=== PATIENT | male | born 1965 | race African-American/Black ===

== ENCOUNTER → 2021-12-15 | Day surgery (SDC) | payer OTHER ==
[~2021-12-15] VITALS: Ht 193 cm; Wt 172.4 kg
[~2021-12-15] MED LIST: COZAAR50 MG PO; HCTZ12.5 MG PO; MEN 50 PLUS MU1 EACH PO; METFORMIN HCL500 MG PO; OXYBUTYNIN CHLO10 MG PO; OZEMPIC0.25 MG/0. IJ
[2021-12-15 08:08] LABS: HGB 13.3 g/dl (13.2-18.0); MCH 24.9 pg (25.0-31.0); MCHC 33.3 g/dL (32.0-36.0); MCV 74.9 fL (78.0-100.0); RBC 5.34 M/uL (4.70-6.00); WBC 13.2 K/uL (4.0-10.5)
[2021-12-15 08:26] LABS: ALBUMIN 3.2 g/dL (3.4-5.0); BILIRUBIN - TOTAL 0.4 mg/dL (0.2-1.0); BUN/CREAT RATIO (CALC) 12.4 RATIO; CREATININE 1.05 mg/dL (0.67-1.17); GLOBULIN (CALCULATION) 5.1 g/dL; POTASSIUM 3.3 mmol/L (3.5-5.1); TOTAL PROTEIN 8.3 g/dL (6.4-8.2)
== END | disposition home or self-care (01) ==
LOC: FAS 11-16 08:30
PROVIDERS: Surgery
DX: K21.00 Gastro-esophageal reflux disease with esophagitis, without bleeding (principal); K29.70 Gastritis, unspecified, without bleeding; D50.0 Iron deficiency anemia secondary to blood loss (chronic); E11.9 Type 2 diabetes mellitus without complications; G47.30 Sleep apnea, unspecified; R19.5 Other fecal abnormalities; I10 Essential (primary) hypertension; E66.01 Morbid (severe) obesity due to excess calories; Z68.42 Body mass index [BMI] 45.0-49.9, adult; Z79.84 Long term (current) use of oral hypoglycemic drugs
CPT/HCPCS: 36415; 80053; 82962; J2704; J7120